=== PATIENT | female | born 1995 | race Caucasian/White ===

== ENCOUNTER 2016-10-15 00:36 | Emergency (ER) | payer SELFPAY ==
[~2016-10-15] VITALS: Ht 157.5 cm; Wt 45.0 kg
[2016-10-15 00:44] VITALS: BP 110/64
[2016-10-15] MEDS ORDERED: CARBAMAZEPINE 200MG TABLET PO ONE (01:45)
== END 2016-10-15 02:19 | disposition left against medical advice (07) ==
LOC: ER 00:44
DX: R56.9 Unspecified convulsions (principal); F12.10 Cannabis abuse, uncomplicated
CPT/HCPCS: 99283

== ENCOUNTER 2019-05-26 08:22 | Emergency (ER) | payer MEDICAID ==
[~2019-05-26] VITALS: Ht 165.1 cm; Wt 84.0 kg
[2019-05-26] MEDS ORDERED: SODIUM CHLORIDE 0.9% 1,000 ML IV ONE (10:45)
[2019-05-26 11:30] VITALS: BP 98/68
[2019-05-26 11:42] LABS: EOSINOPHILS % 3.7 % (0.0-5.0); HEMATOCRIT. 39.4 % (36.0-48.0); HEMOGLOBIN. 13.3 g/dL (12.0-16.0); LYMPHOCYTES % 35.1 % (20.0-50.0); MEAN CORPUSCULAR HEMOGLOBIN 33.8 pg (28.0-32.0); MEAN CORPUSCULAR VOLUME 100.2 fL (81.0-99.0); MEAN PLATELET VOLUME 8.8 fl (7.4-10.4); MONOCYTES % 10.6 % (2.0-8.0); NEUTROPHILS % 49.6 % (40.0-76.0); PLATELET 315 x1000/uL (130-400); RED BLOOD CELL COUNT 3.94 mill/uL (4.2-5.4); RED CELL DISTRIBUTION WIDTH 13.4 % (11.6-14.6)
[2019-05-26 11:43] LABS: CHLORIDE 107 mEq/L (98-107)
== END 2019-05-26 11:49 | disposition left against medical advice (07) ==
LOC: ER 08:31
DX: G40.909 Epilepsy, unspecified, not intractable, without status epilepticus (principal); R03.0 Elevated blood-pressure reading, without diagnosis of hypertension; F17.210 Nicotine dependence, cigarettes, uncomplicated; Z71.6 Tobacco abuse counseling
CPT/HCPCS: 36415; 80048; 81025; 85025; 99283; 99406; J7030

== ENCOUNTER 2025-01-19 19:05 | Emergency (ER) | payer MEDICAID ==
[~2025-01-19] VITALS: Ht 167.6 cm; Wt 70.0 kg
[2025-01-19 19:11] VITALS: TEMP 36.7; O2SAT 97
[2025-01-19] MEDS: LIDOCAINE HCL 1% 20ML VIAL INFIL ONE (19:15)
[2025-01-19] MEDS ORDERED: CARBAMAZEPINE 100MG TABLET CHEW PO ONE (19:15)
[2025-01-19 19:43] LABS: BASOPHILS % 1.0 % (0.0-2.0); EOSINOPHILS % 2.2 % (0.0-5.0); HEMATOCRIT. 39.5 % (36.0-48.0); HEMOGLOBIN. 13.1 g/dL (12.0-16.0); LYMPHOCYTES % 16.8 % (20.0-50.0); MEAN PLATELET VOLUME 7.4 fl (7.4-10.4); MONOCYTES % 8.8 % (2.0-8.0); NEUTROPHILS % 71.2 % (40.0-76.0); PLATELET 311 x1000/uL (130-400); RED BLOOD CELL COUNT 3.72 mill/uL (4.2-5.4); RED CELL DISTRIBUTION WIDTH 13.1 % (11.6-14.6)
[2025-01-19 19:55] LABS: HCG SCREEN NEGATIVE
[2025-01-19 19:58] LABS: CREATININE 1.0 mg/dL (0.6-1.0); UREA NITROGEN BLOOD 10 mg/dL (9-23)
[2025-01-19 19:59] LABS: ETHANOL BLOOD < 10 mg/dL (<10)
[2025-01-19 20:00] LABS: ASPARTATE AMINOTRANSFERASE 27 IU/L (<34); BILIRUBIN DIRECT 0.2 mg/dL (<=3.0); BILIRUBIN TOTAL 0.6 mg/dL (0.1-1.0); PROTEIN TOTAL 8.6 g/dL (6.0-8.3)
[2025-01-19] MEDS: LAMOTRIGINE 25MG TABLET PO ONE (20:07)
[2025-01-19] MEDS: CARBAMAZEPINE 200MG TABLET PO SCH (20:26)
[2025-01-19 21:17] VITALS: BP 121/72; PULSE 73; RESP 15; O2SAT 99
== END 2025-01-19 21:18 | disposition home or self-care (01) ==
LOC: ER 19:05
DX: S01.81XA Laceration without foreign body of other part of head, initial encounter (principal); G40.409 Other generalized epilepsy and epileptic syndromes, not intractable, without status epilepticus; X58.XXXA Exposure to other specified factors, initial encounter; Y93.89 Activity, other specified; Y92.89 Other specified places as the place of occurrence of the external cause; Y99.8 Other external cause status
CPT/HCPCS: 80076; 80048; 80320; 84703; 83735; 85025; 36415; 70450; 72125; 12011; 99284; J2003; Z7610 ×2; A4606; G0480